=== PATIENT | male | born 1980 | race Caucasian/White ===

== ENCOUNTER 2017-07-02 17:10 | Emergency (ER) | payer BC, SELFPAY ==
[2017-07-02 17:16] VITALS: BP 149/83; PULSE 99; RESP 18; TEMP 36.7; O2SAT 94; BMI 37.5
--- NOTE | 2017-07-02 17:32 | XR_ITS ---
XR chest portable HISTORY: Shortness of breath ITS.REASON: DIAPHORETIC ORDERING PHYSICIAN: Philly Long MD PATIENT AGE: 37 years COMPARISON: 10/01/2016 FINDINGS: The cardiomediastinal silhouette and pulmonary vascularity are within normal limits. The lungs are clear without infiltrates, suspicious nodules, or pleural effusions. No acute bony abnormalities. IMPRESSION: Negative chest, no acute finding
[2017-07-02 17:43] LABS: POC Glucose,Bedside 281 mg/dL
[2017-07-02 18:06] LABS: Basophils # 0.2 K/mm3 (0-0.2); Basophils % 1.1 % (0.1-2.0); Eosinophils # 0.1 K/mm3 (0.0-0.4); Eosinophils % 0.6 % (0.1-12.0); Hemoglobin 16.5 g/dL (14.1-18.0); Lymphocytes # 3.2 K/mm3 (0.7-4.5); Lymphocytes % 24.1 K/mm3 (10-50); Mean Corpuscular HGB Conc 34.4 g/dL (31.8-35.4); Mean Corpuscular Volume 84.3 fl (80-94); Mean Platelet Volume 8.2 fl (7.4-10.4); Monocytes # 0.8 K/mm3 (0.1-1.0); Monocytes % 5.7 % (1.7-9.3); Neutrophils # 9.1 K/mm3 (1.8-7.8); Neutrophils % 68.5 % (37.0-80.0); Platelet Count 279 K/mm3 (142-424); Red Cell Distribution Width 12.3 % (11.5-17.5); White Blood Count 13.2 K/mm3 (4.8-10.8)
[2017-07-02 18:18] LABS: Alanine Aminotransferase 47 U/L (12-78); Albumin Level 4.1 gm/dL (3.4-5.0); Alkaline Phosphatase 105 U/L (46-116); Anion Gap 15.2 mEq/L (5-15); Aspartate Amino Transferase 27 U/L (15-37); Bilirubin,Total 0.4 mg/dL (0.2-1.0); Blood Urea Nitrogen 16 mg/dL (7-18); Calcium 9.6 mg/dL (8.5-10.1); Carbon Dioxide 26 mmol/L (21.0-32.0); Chloride 95 mmol/L (98-107); Creatinine Clearance Estimated 173 mL/min (0-300); Creatinine,Serum 1.03 mg/dL (0.70-1.30); Estimated Glomerular Filt Rate 81 ml/min (>60); GFR (African American) 98 ML/MIN (>60); Glucose 303 mg/dL (74-106); Potassium 4.2 mmoL/L (3.5-5.1); Sodium 132 mmol/L (136-145); Total Protein,Serum 8.1 gm/dL (6.4-8.2); Troponin I < 0.02 ng/ml (0.00-0.06)
[2017-07-02 18:42] VITALS: BP 156/90; PULSE 101; RESP 18; O2SAT 98
[2017-07-02 19:43] LABS: Microscopic, Urine URINE MICROSCOPIC (MICROSCOPIC)
[2017-07-02 19:45] LABS: Appearance,Urine CLEAR (Clear); Bilirubin,Urine Negative (Negative); Blood, Urine TRACE-I (Negative); Color,Urine YELLOW (Yellow); Glucose,Urine (UA) 3+ (Negative); Ketones,Urine TRACE (Negative); Leukocyte Esterase,Urine Negative (Negative); Nitrate,Urine Negative (Negative); Protein,Urine 1+ (Negative); Urobilinogen,Urine 0.2 EU/dl (0.2)
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
--- NOTE | 2017-07-02 21:02 | ED_ITS ---
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 extermination inspector insulin use status Qualified Code(s): E11.9 - Type 2 diabetes mellitus without complications Disposition: Home, Self-Care Condition on Discharge: Good Instructions: DI for Sinusitis Additional Instructions: call pcp about diabetes in am and use meds as directed Prescriptions: cephALEXin [Keflex 500mg Cap] 500 mg PO TID #30 cap Referrals: Laurence Erazo APRN [Primary Care Provider] - - Critical Care Critical Care Time: No Attestation: On 07/02/17, the high probability of a clinically significant, sudden or life threatening deterioration of the following system(s) required my full and direct attention, intervention and personal management. The time I documented below is in addition to time spent performing reported procedures but includes the following listed in this critical care notation. Medical Decision Making - Medical Records Medical records reviewed: Yes: I reviewed the patient's medical records. Vital Signs: 07/02/17 17:16 07/02/17 18:42 Temperature 98.1 F Temperature Source Oral Pulse Rate [Apical] 99 H 101 H Respiratory Rate 18 18 Blood Pressure [Right Arm] 149/83 156/90 Blood Pressure Mean [Right Arm] 105 112 Blood Pressure Source [Right Arm] Automatic Cuff Automatic Cuff Blood Pressure Position [Right Arm] Sitting Sitting 02 Sat by Pulse Oximetry 94 L 98 Oxygen Delivery Method Room Air Room Air - Lab Data Lab results reviewed: Yes: I reviewed the patient's lab results. Lab Results 07/02/17 17:18: POC Glucose 281 07/02/17 17:50: WBC 13.2 H, RBC 5.70, Hgb 16.5, Hct 48.0, MCV 84.3, MCH 29.0, MCHC 34.4, RDW 12.3, Plt Count 279, MPV 8.2, Neut % (Auto) 68.5, Lymph % (Auto) 24.1, [place] % (Auto) 5.7, Eos % (Auto) 0.6, Baso % (Auto) 1.1, Neut # (Auto) 9.1 H, Lymph # (Auto) 3.2, [place] # (Auto) 0.8, Eos # (Auto) 0.1, Baso # (Auto) 0.2 07/02/17 17:50: Sodium 132 L, Potassium 4.2, Chloride 95 L, Carbon Dioxide 26, Anion Gap 15.2 H, BUN 16, Creatinine 1.03, Estimated Creat Clear 173, Estimated GFR 81, Est GFR ( Amer) 98, Glucose 303 H, Calcium 9.6, Total Bilirubin 0.4, AST 27, ALT 47, Alkaline Phosphatase 105, Troponin I < 0.02, Total Protein 8.1, Albumin 4.1, Globulin 4.0 H, Albumin/Globulin Ratio 1.0 L 07/02/17 17:50: Acetone Level None detected 07/02/17 19:05: Urine Color Yellow, Urine Appearance Clear, Urine pH 6.0, Ur Specific [place] 1.020, Urine Protein 1+, Urine Glucose (UA) 3+, Urine Ketones Trace, Urine Blood Trace-i, Urine Nitrate Negative, Urine Bilirubin Negative, Urine Urobilinogen 0.2, Ur Leukocyte Esterase Negative, Urine RBC None, Urine WBC None, Ur Squamous Epith Cells None, Urine Bacteria Trace Result diagrams: 07/02/17 17:50 07/02/17 17:50 Orders (Tests/Meds): ORDERS Category Date Time Status XR chest portable Stat Exams 07/02/17 17:32 Taken - Radiology Data #1 Image Reviewed: Yes I reviewed the patient's radiology image Preliminary Findings: Normal/NAD - ECG Data Tracing #1 Ischemic changes: non-specific ST-T wave changes - Deuce Inquiry Pt receivi
[2017-07-02 21:12] LABS: Acetone, Serum (Rapid) None Detected (None Detect)
[2017-07-02 21:13] LABS: Bacteria,Urine Trace /lpf
== END 2017-07-02 21:50 | disposition home or self-care (01) ==
PROVIDERS: Emergency Provider Emergency Medicine; Family Provider Emergency Medicine; PCP Nurse Practitioner Family
DX: J01.90 Acute sinusitis, unspecified (principal); E11.649 Type 2 diabetes mellitus with hypoglycemia without coma; Z79.84 Long term (current) use of oral hypoglycemic drugs; R12 Heartburn; I10 Essential (primary) hypertension
CPT/HCPCS: 71045; 80053; 81001; 82009; 82962; 84484; 85025; 93005; 93041; 96366; 99283

== ENCOUNTER → 2017-07-02 17:53 | Outpatient (REF) | payer BC, SELFPAY | LOC: LAB 17:53 | PROVIDERS: Visit Provider Nurse Practitioner Family | DX: E11.9 Type 2 diabetes mellitus without complications; J01.90 Acute sinusitis, unspecified ==

== ENCOUNTER 2017-08-12 08:00 | Outpatient (RCR) | payer BC, SELFPAY | END 2017-08-12 08:01 | disposition home or self-care (01) | LOC: OT 08:00 | PROVIDERS: Family Provider Emergency Medicine; PCP Nurse Practitioner Family; Visit Provider Orthopaedic Surgery Adult Reconstructive Orthopaedic Surgery | DX: M25.511 Pain in right shoulder (principal) | CPT/HCPCS: 97014; 97110; 97166; G0283 ==

== ENCOUNTER → 2017-12-25 10:25 | Outpatient (CLI) | payer BC, SELFPAY ==
[2017-12-25 10:54] LABS: Basophils # 0.1 K/mm3 (0-0.2); Eosinophils # 0.2 K/mm3 (0.0-0.4); Hematocrit 46.9 % (42.0-52.0); Hemoglobin 15.4 g/dL (14.1-18.0); Lymphocytes # 3.6 K/mm3 (0.7-4.5); Lymphocytes % 39.5 K/mm3 (10-50); Mean Corpuscular Hemoglobin 27.9 pg (27.0-31.2); Mean Corpuscular Volume 84.6 fl (80-94); Mean Platelet Volume 8.1 fl (7.4-10.4); Monocytes # 0.6 K/mm3 (0.1-1.0); Neutrophils # 4.7 K/mm3 (1.8-7.8); Neutrophils % 51.6 % (37.0-80.0); Platelet Count 257 K/mm3 (142-424); Red Blood Count 5.54 M/mm3 (4.60-6.20); Red Cell Distribution Width 12.5 % (11.5-17.5); White Blood Count 9.1 K/mm3 (4.8-10.8)
[2017-12-25 11:43] LABS: Hemoglobin A1C 10.4 % (0.0-7.0)
[2017-12-25 12:02] LABS: Alanine Aminotransferase 50 U/L (12-78); Albumin Level 3.9 gm/dL (3.4-5.0); Albumin/Globulin Ratio 1.1 (1.1-1.8); Alkaline Phosphatase 88 U/L (46-116); Aspartate Amino Transferase 28 U/L (15-37); Bilirubin,Total 0.4 mg/dL (0.2-1.0); Blood Urea Nitrogen 13 mg/dL (7-18); Calcium 8.5 mg/dL (8.5-10.1); Carbon Dioxide 28 mmol/L (21.0-32.0); Chloride 98 mmol/L (98-107); Chol/HDL Ratio 6.5 (1-3.5); Cholesterol 201 mg/dL (140-200); Creatinine,Serum 0.82 mg/dL (0.70-1.30); Estimated Glomerular Filt Rate 105 ml/min (>60); GFR (African American) 127 ML/MIN (>60); Globulin 3.4 gm/dl (1.3-3.2); Glucose 266 mg/dL (74-106); HDL Cholesterol 31 mg/dL (27-67); LDL Cholesterol 100 mg/dL (0-130); Sodium 135 mmol/L (136-145); T4 (Thyroxine) 8.4 ug/dl (4.7-13.3); Thyroid Stimulating Hormone 1.67 uIU/ml (0.358-3.740); Total Protein,Serum 7.3 gm/dL (6.4-8.2); Triglycerides 350 mg/dL (30-200); VLDL Cholesterol 70 mg/dL (0-40)
[2017-12-26 11:43] LABS: Vitamin D 25 Hydroxy 23.2 ng/mL (30.0-100.0)
== END ==
PROVIDERS: Visit Provider Nurse Practitioner Family
DX: E11.9 Type 2 diabetes mellitus without complications (principal); Z71.3 Dietary counseling and surveillance; Z79.899 Other long term (current) drug therapy
CPT/HCPCS: 36415; 80053; 80061; 82043; 82652; 83036; 84436; 84443; 85025

== ENCOUNTER 2017-12-25 11:00 | Outpatient (RCR) | payer BC, SELFPAY | END 2017-12-25 11:01 | disposition home or self-care (01) | LOC: OT 11:00 | PROVIDERS: Family Provider Emergency Medicine; PCP Nurse Practitioner Family; Visit Provider Orthopaedic Surgery Adult Reconstructive Orthopaedic Surgery | DX: M75.21 Bicipital tendinitis, right shoulder (principal) | CPT/HCPCS: 97014; 97140; 97165; G0283 ==

== ENCOUNTER → 2017-12-26 17:40 | Outpatient (REF) | payer BC, SELFPAY ==
[2017-12-26 17:57] LABS: Amphetamine/Metha Screen,Urine Negative ng/mL (<1000); Barbiturates Screen,Urine Negative ng/mL (<200); Benzodiazepines Screen,Urine Negative ng/mL (<200); Cannabinoid Screen,Urine Negative ng/mL (<50); Cocaine Screen,Urine Negative ng/mL (<300); Methadone Screen,Urine Negative ng/mL (<300); Opiate Screen,Urine Negative ng/mL (<300); Phencyclidine Screen,Urine Negative ng/mL (<25)
== END ==
LOC: LAB 17:40
PROVIDERS: Visit Provider Nurse Practitioner Family
DX: Z79.899 Other long term (current) drug therapy (principal)
CPT/HCPCS: 80305

== ENCOUNTER → 2018-08-20 08:00 | Outpatient (POV) | payer BC, SELFPAY | PROVIDERS: Visit Provider Dentist | DX: Z00.00 Encounter for general adult medical examination without abnormal findings (principal) ==

== ENCOUNTER → 2018-10-16 08:24 | Outpatient (CLI) | payer BC, SELFPAY ==
[2018-10-16 08:45] LABS: Basophils # 0.1 K/mm3 (0-0.2); Basophils % 0.9 % (0.1-2.0); Eosinophils # 0.2 K/mm3 (0.0-0.4); Eosinophils % 2.6 % (0.1-12.0); Hematocrit 43.2 % (42.0-52.0); Hemoglobin 15.3 g/dL (14.1-18.0); Lymphocytes # 3.4 K/mm3 (0.7-4.5); Lymphocytes % 37.3 % (10-50); Mean Corpuscular HGB Conc 35.5 g/dL (31.8-35.4); Mean Corpuscular Hemoglobin 29.4 pg (27.0-31.2); Mean Corpuscular Volume 82.8 fl (80-94); Mean Platelet Volume 7.8 fl (7.4-10.4); Monocytes # 0.5 K/mm3 (0.1-1.0); Monocytes % 5.2 % (1.7-9.3); Neutrophils # 4.9 K/mm3 (1.8-7.8); Neutrophils % 53.9 % (37.0-80.0); Platelet Count 218 K/mm3 (142-424); Red Blood Count 5.22 M/mm3 (4.60-6.20); Red Cell Distribution Width 12.6 % (11.5-17.5)
[2018-10-16 09:26] LABS: Alanine Aminotransferase 64 U/L (12-78); Albumin Level 3.6 gm/dL (3.4-5.0); Albumin/Globulin Ratio 1.1 (1.1-1.8); Alkaline Phosphatase 86 U/L (46-116); Anion Gap 13.2 mEq/L (5-15); Aspartate Amino Transferase 32 U/L (15-37); Bilirubin,Total 0.3 mg/dL (0.2-1.0); Blood Urea Nitrogen 9 mg/dL (7-18); Calcium 8.5 mg/dL (8.5-10.1); Carbon Dioxide 29 mmol/L (21.0-32.0); Chloride 100 mmol/L (98-107); Chol/HDL Ratio 6.7 (1-3.5); Cholesterol 201 mg/dL (140-200); Creatinine,Serum 0.87 mg/dL (0.70-1.30); Estimated Glomerular Filt Rate 98 ml/min (>60); GFR (African American) 118 ML/MIN (>60); Globulin 3.4 gm/dl (1.3-3.2); Glucose 218 mg/dL (74-106); HDL Cholesterol 30 mg/dL (27-67); LDL Cholesterol 95 mg/dL (0-130); Potassium 4.2 mmoL/L (3.5-5.1); Sodium 138 mmol/L (136-145); T4 (Thyroxine) 7.6 ug/dl (4.7-13.3); Thyroid Stimulating Hormone 1.29 uIU/ml (0.358-3.740); Triglycerides 381 mg/dL (30-200); VLDL Cholesterol 76 mg/dL (0-40)
[2018-10-16 10:14] LABS: Hemoglobin A1C 9.9 % (0.0-7.0)
[2018-10-17 06:44] LABS: Vitamin D 25 Hydroxy 17.5 ng/mL (30.0-100.0)
[2018-10-17 12:41] LABS: Microalbumin, Urine 127.3 ug/mL (Not Estab.)
== END ==
PROVIDERS: Visit Provider Nurse Practitioner Family
DX: E11.40 Type 2 diabetes mellitus with diabetic neuropathy, unspecified (principal); R53.83 Other fatigue; E11.8 Type 2 diabetes mellitus with unspecified complications; E66.9 Obesity, unspecified; Z79.84 Long term (current) use of oral hypoglycemic drugs
CPT/HCPCS: 36415; 80053; 80061; 82043; 82652; 83036; 84436; 84443; 85025

== ENCOUNTER → 2020-02-24 10:27 | Outpatient (CLI) | payer BC, SELFPAY ==
--- NOTE | 2020-02-24 10:32 | US_ITS ---
PROCEDURE: US ABDOMEN LIMITED CLINICAL INDICATION: RUQ ABD PAIN, NAUSEA COMPARISON: No exams were available for comparison FINDINGS: PANCREAS: Pancreas is not well delineated due to overlying bowel gas. CT or MRI without and with contrast with pancreatic protocol may provide further evaluation if clinically desired. LIVER: Diffuse increased echogenicity of the liver with poor through transmission of sound consistent with hepatic steatosis. No focal liver lesion demonstrated. There is appropriate direction of blood flow within non dilated portal vein. RIGHT KIDNEY: Unremarkable. Normal size and echogenicity. No hydronephrosis GALLBLADDER: No gallstones, gallbladder wall thickening, pericholecystic fluid, or biliary dilatation. IMPRESSION: Fatty liver otherwise negative right upper quadrant ultrasound Dictated by: Manny Herbert MD 02/24/2020 11:42 Manny Herbert MD in [facility] 02/24/2020 11:42
== END ==
PROVIDERS: PCP Family Medicine; Visit Provider Family Medicine
DX: R10.11 Right upper quadrant pain (principal); R11.0 Nausea
CPT/HCPCS: 76705

== ENCOUNTER → 2020-03-07 09:19 | Outpatient (CLI) | payer BC, SELFPAY ==
--- NOTE | 2020-03-07 09:28 | NM_ITS ---
PROCEDURE: NM HEPATOBILIARY W PHARM CLINICAL INDICATION: RUQ ABD PAIN, NAUSEA COMPARISON: No exams were available for comparison TECHNIQUE: 8.52 mCi technetium Choletec DOSE: 2.4 mcg of CCK FINDINGS: Homogeneous activity is present within the hepatic parenchyma. Activity is present in the gallbladder by 5 minutes. Activity is present in the small bowel by 50 minutes. The gallbladder ejection fraction is calculated to be 94 percent. Minimal pain reported with CCK infusion IMPRESSION: No evidence of common or cystic duct obstruction with normal gallbladder ejection fraction Dictated by: Manny Herbert MD 03/07/2020 19:38 Manny Herbert MD in [place] 03/07/2020 19:38
--- NOTE | 2020-03-07 10:11 | HMH.ITSHM ---
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 []METFORMIN LISINOPRIL CHOLESTEROL MED LEYDI DUEÑAS
== END ==
PROVIDERS: PCP Family Medicine; Visit Provider Family Medicine
DX: R10.11 Right upper quadrant pain (principal); R11.0 Nausea
CPT/HCPCS: 78227; A9537; J2805

== ENCOUNTER → 2020-03-09 10:06 | Outpatient (CLI) | payer BC, SELFPAY ==
--- NOTE | 2020-03-09 10:09 | XR_ITS ---
PROCEDURE: XR KUB CLINICAL INDICATION: R FLANK PAIN COMPARISON: CT ABDPELW/O CT ABD PELVIS W/O CONTRAST from 07/21/2015 FINDINGS: Gas pattern-The bowel gas pattern is unremarkable. No obvious obstruction. Calcifications-No abnormal calcifications are evident. No obvious renal or ureteral calculi. Bones-No acute bony anomalies evident. There are multiple small metallic coils in the pelvis and right lower quadrant IMPRESSION: No acute findings. Dictated by: Manny Herbert MD 03/09/2020 11:19 Manny Herbert MD in [place] 03/09/2020 11:19
== END ==
PROVIDERS: PCP Family Medicine; Visit Provider Family Medicine
DX: R10.9 Unspecified abdominal pain (principal)
CPT/HCPCS: 74018

== ENCOUNTER → 2020-04-05 09:50 | Outpatient (CLI) | payer BC, SELFPAY ==
--- NOTE | 2020-04-05 10:00 | CT_ITS ---
PROCEDURE: CT ABDOMEN PELVIS WO/W CON CLINICAL INDICATION: LOWER ABD PAIN, FEVER AND CHILLS, LEUKEMOID REACTION RUQ, RIGHT SIDE ABD PAIN, MID LOW BACK PAIN COMPARISON: CT ABDPELW/O CT ABD PELVIS W/O CONTRAST from 07/21/2015 TECHNIQUE: IV Contrast: 75ML OPTIRAY 350 Oral Contrast 450ml Redicat Axial images obtained with sagittal and coronal reformats. All CT scans at the facility use one or more dose reduction, viz: automated exposure control, ma/kV adjustment per patient size (including targeted exams where dose is matched to indication, i.e. head), or iterative reconstruction technique. FINDINGS: LOWER THORAX: No acute finding ABDOMEN & PELVIS: Fatty liver. No focal liver lesion identified the spleen, adrenal glands, pancreas, and gallbladder have an unremarkable appearance. Unenhanced images demonstrate a nonobstructing 3 mm stone in the upper pole of the right kidney. The kidneys have an otherwise unremarkable appearance. Postsurgical changes are present involving the anterior abdominal wall. There is some curvilinear increased density in the right lower pelvic region anteriorly probably related to some scarring having a similar appearance on 07/21/2015. No evidence of appendicitis or diverticulitis. No intestinal obstruction or free air. There is a small umbilical hernia which contains fat. No acute bony findings. 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 There is mild sclerosis of the left SI joint IMPRESSION: 1. No acute abdominal or pelvic findings. 2. Nonobstructing right nephrolithiasis. 3. Nonacute findings as detailed above. Dictated by: Manny Herbert MD 04/06/2020 09:30 Manny Herbert MD in [place] 04/06/2020 09:30
[2020-04-05 10:21] LABS: Blood Urea Nitrogen 11 mg/dl (9-20); Estimated Glomerular Filt Rate 124 ml/min (>60); GFR (African American) 150 ML/MIN (>60)
== END ==
PROVIDERS: PCP Family Medicine; Visit Provider Family Medicine
DX: R10.30 Lower abdominal pain, unspecified (principal); R50.9 Fever, unspecified; D72.823 Leukemoid reaction
CPT/HCPCS: 36415; 74178; 82565; 84520; Q9967

== ENCOUNTER → 2020-08-14 14:49 | Outpatient (CLI) | payer BC, SELFPAY ==
--- NOTE | 2020-08-14 14:54 | XR_ITS ---
PROCEDURE: XR WRIST RT MIN 3V CLINICAL INDICATION: ACUTE PAIN OF RT WRIST COMPARISON: No exams were available for comparison FINDINGS: No fracture or dislocation. No lytic or blastic change. There is normal mineralization. The joint spaces are well-preserved. No significant degenerative/arthritic changes. No erosive changes evident. Other findings:None. IMPRESSION: No acute findings. Dictated by: Manny Herbert MD 08/14/2020 15:49 Manny Herbert MD in [place] 08/14/2020 15:49
== END ==
PROVIDERS: PCP Family Medicine; Visit Provider Family Medicine
DX: M25.531 Pain in right wrist (principal)
CPT/HCPCS: 73110

== ENCOUNTER → 2021-01-24 13:02 | Outpatient (CLI) | payer BC, SELFPAY ==
--- NOTE | 2021-01-24 13:05 | MR_ITS ---
PROCEDURE: MR KNEE RT WO CON CLINICAL INDICATION: INTERNAL DERANGEMENT OF RIGHT KNEE Right medial knee pain COMPARISON: No exams were available for comparison TECHNIQUE: Routine multiplanar multi echo sequences are performed without gadolinium enhancement. FINDINGS: The cruciate ligaments appear intact. The collateral ligaments appear intact. Horizontal tear is present involving the posterior horn of the medial meniscus. Additional horizontal tear involves the body of the medial meniscus with extension to both the free edge of the meniscus medially and the tibial surface of the meniscus. The patellar tendon and quadriceps tendon have an unremarkable appearance. The patellar cartilage is preserved. Small amount fluid noted in the suprapatellar bursa. There is slight decrease in the knee joint space medially and there are small osteophytes at the proximal tibia. Subcortical cystic changes involve the posterior and proximal aspect of the tibia medially. This area measures approximately 1 cm IMPRESSION: 1. Nondisplaced horizontal tear involves the posterior horn and body of the medial meniscus. 2. Minimal osteoarthritic changes Dictated by: Manny Herbert MD 01/24/2021 16:44 Manny Herbert MD in [place] 01/24/2021 16:44
== END ==
PROVIDERS: PCP Family Medicine; Visit Provider Family Medicine
DX: M23.91 Unspecified internal derangement of right knee (principal)
CPT/HCPCS: 73721

== ENCOUNTER → 2021-02-23 13:14 | Outpatient (CLI) | payer BC, SELFPAY ==
--- NOTE | 2021-02-23 13:16 | XR_ITS ---
PROCEDURE: XR KNEE RT 4V CLINICAL INDICATION: RT knee pain COMPARISON: No exams were available for comparison FINDINGS: No fracture or dislocation. No lytic or blastic change. There is normal mineralization. The joint spaces are well-preserved. No significant degenerative/arthritic changes. No erosive changes evident. Other findings:None. IMPRESSION: No acute findings. Dictated by: Dr. Beto Suarez MD 02/23/2021 13:34 Dr. Beto Suarez MD in [place] 02/23/2021 13:34
== END ==
PROVIDERS: PCP Family Medicine; Visit Provider Orthopaedic Surgery
DX: M25.561 Pain in right knee (principal)
CPT/HCPCS: 73564

== ENCOUNTER → 2021-06-18 12:07 | Outpatient (CLI) | payer BC, SELFPAY | PROVIDERS: PCP Family Medicine; Visit Provider Nurse Practitioner | DX: U07.1 COVID-19 (principal) | CPT/HCPCS: C9803; U0003; U0005 ==

== ENCOUNTER 2021-06-21 08:18 | Outpatient (CLI) | payer BC, SELFPAY ==
[2021-06-21] VITALS (9 sets, daily range): BP systolic 130–166; BP diastolic 92–113; PULSE 87–98; RESP 18; TEMP 36.8; O2SAT 95–98
== END 2021-06-21 12:45 | disposition home or self-care (01) ==
LOC: COVID.OUT 08:19
PROVIDERS: PCP Family Medicine; Visit Provider Family Medicine
DX: U07.1 COVID-19 (principal); Z23 Encounter for immunization
CPT/HCPCS: 96365

== ENCOUNTER → 2021-09-24 15:18 | Outpatient (CLI) | payer BC, SELFPAY ==
[2021-09-24 16:52] LABS: Alanine Aminotransferase 47 U/L (12-78); Albumin Level 4.1 g/dl (3.5-5.0); Albumin/Globulin Ratio 1.6 (1.1-1.8); Alkaline Phosphatase 77 U/L (38-126); Anion Gap 10.3 mEq/L (5-15); Aspartate Amino Transferase 36 U/L (17-59); Bilirubin,Total 0.4 mg/dl (0.2-1.3); Blood Urea Nitrogen 17 mg/dl (9-20); Calcium 9.2 mg/dl (8.4-10.2); Carbon Dioxide 27 mmol/L (22.0-30.0); Chloride 104 mmol/L (98-107); Estimated Glomerular Filt Rate 106 ml/min (>60); GFR (African American) 128 ML/MIN (>60); Globulin 2.6 g/dL (1.3-3.2); Glucose 138 mg/dl (74-100); Magnesium 1.9 mg/dl (1.6-2.3); Potassium 4.3 mmoL/L (3.5-5.1); Sodium 137 mmol/L (136-145); Total Protein,Serum 6.7 g/dl (6.3-8.2)
[2021-09-24 16:57] LABS: C-Reactive Protein 3.2 mg/L (0-4)
[2021-09-24 17:21] LABS: Thyroid Stimulating Hormone 0.76 uIU/mL (0.465-4.68)
[2021-09-24 17:55] LABS: Vitamin B12 512 pg/mL (239-931)
== END ==
PROVIDERS: PCP Nurse Practitioner Family; Visit Provider Nurse Practitioner Family
DX: E11.42 Type 2 diabetes mellitus with diabetic polyneuropathy (principal); R20.0 Anesthesia of skin; R20.2 Paresthesia of skin; Z79.84 Long term (current) use of oral hypoglycemic drugs
CPT/HCPCS: 36415; 80053; 82607; 83735; 84443; 86140

== ENCOUNTER 2021-11-21 14:55 | Emergency (ER) | payer BC, SELFPAY ==
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
[2021-11-21 16:46] VITALS: BP 176/93; PULSE 92; RESP 16; TEMP 36.8; O2SAT 99; BMI 36.2
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
[2021-11-21 17:11] VITALS: BP 170/87; PULSE 84; RESP 16; TEMP 36.8; O2SAT 98
== END 2021-11-21 17:12 | disposition home or self-care (01) ==
PROVIDERS: Emergency Provider Nurse Practitioner; PCP Family Medicine
DX: S99.911A Unspecified injury of right ankle, initial encounter (principal); V09.9XXA Pedestrian injured in unspecified transport accident, initial encounter; Y92.481 Parking lot as the place of occurrence of the external cause
CPT/HCPCS: 73610; 73630; 99212; G0463

== ENCOUNTER → 2021-12-04 12:04 | Outpatient (CLI) | payer BC, SELFPAY ==
--- NOTE | 2021-12-04 12:19 | XR_ITS ---
FINAL REPORT CLINICAL HISTORY: Pain, crush injury, followup COMPARISON: November 21, 2021 FINDINGS: RIGHT FOOT: Three weight bearing views of the right foot were obtained. There is no acute fracture or dislocation. There are mild degenerative changes at the 1st MTP joint. Hallux valgus deformity is noted. There are subchondral cysts or chronic erosions of the medial head of the 1st metatarsal. IMPRESSION: No acute bony abnormality. Mild degenerative change of the 1st MTP joint with subchondral cysts or chronic erosions of the medial head of the 1st metatarsal. Reviewed, Interpreted and Dictated by Rudy Roberts III, MD Transcribed by Johnny Arteaga Authenticated and [facility]
== END ==
PROVIDERS: PCP Family Medicine; Visit Provider Podiatrist
DX: M79.671 Pain in right foot (principal)
CPT/HCPCS: 73630

== ENCOUNTER → 2022-02-13 09:21 | Outpatient (CLI) | payer BC, SELFPAY ==
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
== END ==
PROVIDERS: PCP Family Medicine; Visit Provider Podiatrist
DX: M79.671 Pain in right foot (principal); R60.0 Localized edema; S93.621A Sprain of tarsometatarsal ligament of right foot, initial encounter; S99.921A Unspecified injury of right foot, initial encounter
CPT/HCPCS: 73718

== ENCOUNTER 2022-06-25 16:00 | Outpatient (RCR) | payer OTHER, BC, SELFPAY | END 2022-06-25 16:05 | disposition home or self-care (01) | LOC: PT 16:00 | PROVIDERS: PCP Family Medicine; Visit Provider Family Medicine | DX: M54.16 Radiculopathy, lumbar region (principal) | CPT/HCPCS: 97163 ==

== ENCOUNTER → 2022-09-10 15:44 | Outpatient (CLI) | payer OTHER, BC, SELFPAY ==
--- NOTE | 2022-09-10 | US_ITS ---
FINAL REPORT CLINICAL HISTORY: HTN, hyperlipidemia, DM, bilateral rest pain, bilateral claudication FINDINGS: COMPLETE ANKLE/BRACHIAL INDICES BILATERAL Complete ankle brachial indices were obtained. The right ELEANOR is 1.4. The left ELEANOR is 1.2. IMPRESSION: ABIs are within normal limits bilaterally. Reviewed, Interpreted and Dictated by Michi Samson MD Transcribed by Marya Stone Authenticated and [facility]
== END ==
PROVIDERS: PCP Family Medicine; Visit Provider Family Medicine
DX: I70.213 Atherosclerosis of native arteries of extremities with intermittent claudication, bilateral legs (principal); E11.65 Type 2 diabetes mellitus with hyperglycemia; Z79.4 Long term (current) use of insulin
CPT/HCPCS: 93923

== ENCOUNTER → 2022-10-10 13:30 | Outpatient (POV) | payer OTHER, BC, SELFPAY ==
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
[2022-10-10 14:45] VITALS: BP 132/89; PULSE 94; RESP 18; O2SAT 98; BMI 36.6
== END ==
PROVIDERS: PCP Family Medicine; Visit Provider Nurse Practitioner Family
DX: G90.529 Complex regional pain syndrome I of unspecified lower limb (principal); M79.671 Pain in right foot; E11.40 Type 2 diabetes mellitus with diabetic neuropathy, unspecified
CPT/HCPCS: 99202; G0463

== ENCOUNTER 2022-10-15 10:45 | Day surgery (SDC) | payer OTHER, BC, SELFPAY ==
[2022-10-15 10:50] VITALS: BP 128/89; PULSE 82; RESP 18; TEMP 36.2; O2SAT 99; BMI 36.6
[2022-10-15 11:04] VITALS: BP 165/95; PULSE 76; RESP 18; O2SAT 97
[2022-10-15 11:05] VITALS: BP 165/95; PULSE 76; RESP 18; O2SAT 97
[2022-10-15 11:13] VITALS: BP 151/96; PULSE 74; RESP 18; O2SAT 99
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
== END 2022-10-15 11:13 | disposition home or self-care (01) ==
LOC: SC.PAINP 10:47
PROVIDERS: PCP Family Medicine; Visit Provider Nurse Anesthetist, Certified Registered
DX: G90.521 Complex regional pain syndrome I of right lower limb (principal); M79.671 Pain in right foot
CPT/HCPCS: 64520; 77003; J1040; Q9966

== ENCOUNTER 2023-12-07 19:02 | Emergency (ER) | payer BC, SELFPAY ==
[2023-12-07 19:04] VITALS: BP 148/106; PULSE 104; RESP 17; TEMP 36.9; O2SAT 95; BMI 35.9
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
[2023-12-07 19:56] VITALS: BP 146/98; PULSE 94; RESP 18; TEMP 36.7; O2SAT 96
== END 2023-12-07 19:57 | disposition home or self-care (01) ==
PROVIDERS: Emergency Provider Student in an Organized Health Care Education/Training Program; PCP Family Medicine
DX: S80.11XA Contusion of right lower leg, initial encounter (principal); M79.661 Pain in right lower leg; W22.8XXA Striking against or struck by other objects, initial encounter
CPT/HCPCS: 73590; 73630; 99283

== ENCOUNTER 2024-05-23 08:10 | Emergency (ER) | payer BC, SELFPAY ==
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
[2024-05-23 08:28] VITALS: BP 155/100; PULSE 70; RESP 20; TEMP 36.8; O2SAT 97; BMI 36.6
--- NOTE | 2024-05-23 08:38 | ED_ITS ---
Discharge Plan Disposition Patient Disposition: Home, Self-Care Condition: Good Prescriptions Prescriptions: New cyclobenzaprine 10 mg Tablet 10 mg PO BID PRN (Reason: Muscle Spasm) Qty: 20 0RF ibuprofen [IBU] 800 mg tablet 800 mg PO Q8HP PRN (Reason: Moderate Pain) Qty: 30 0RF No Action atorvastatin 10 mg tablet 10 mg PO DAILY metformin 850 mg tablet 850 mg PO DAILY gabapentin 300 mg capsule 600 mg PO TID Novolin 70-30 FlexPen U-100 100 unit/mL (70-30) insulin pen See Rx Instructions .ROUTE .COMPLEX Rx Instructions: SEE INSTRUCTIONS lisinopril 20 mg tablet 20 mg PO DAILY Rybelsus 7 mg tablet 7 mg PO DAILY bisoprolol fumarate 10 MG tablet 10 mg PO DAILY Referrals Follow up/Referrals: Roberto Noyola MD [Primary Care Provider] - See instructions Activity Restrictions/Add. Instructions Additional Instructions/Restrictions: Go home and rest. It would be best if you rested tomorrow too. No heavy lifting & No twisting for the next few days. The muscle relaxer (cyclobenzaprine--Flexeril) will make you drowsy, so don't drive or operate heavy machinery after taking it. Follow up with your regular doctor. GO TO THE ER FOR ANY WORSENING SYMPTOMS OR CONCERN, ESPECIALLY BOWEL OR BLADD ER ISSUES, SADDLE AREA NUMBNESS, FEVER, ETC Clinical Impressions Clinical Impression: Low back pain, Coccyx pain, Fall Stand Alone Forms Stand Alone Forms: Work/School Release Print Language Print Language: Argentine Discharge ED Provider: Jude Haddad [facility] General Stated complaint: AO-05/19 Pain in R lower back Mode of Arrival: Ambulatory Source of Information: Patient Time Seen by Provider: 05/23/24 08:33 Description of Symptoms (Recalled from Triage Doc. by RN): RIGHT LOWER BACK PAIN/ COCCYX PAIN FROM FALL, UNABLE TO SIT DOWN HEENT Symptoms (Recalled from RN notes): No Resp Symptoms (Recalled from RN notes): No Skin Symptoms (Recalled from RN notes): No MS Symptoms (Recalled from RN notes): Yes Functional Status (Recalled from RN notes): UNABLE TO SIT, IN PAIN History of Present Illness Provider Complaint: He states that he fell backwards and came down on his bottom 4 days ago. Since then he has had low back pain and coccyx pain. He denies any other injury or complaints. He denies any bowel or bladder issues. Related Data Home Medications ?Medication ?Instructions ?Recorded ?Confirmed bisoprolol fumarate 10 mg tablet 10 mg PO DAILY htn 07/26/19 05/23/24 insulin NPH-regular 70-30 U-100 See Rx Instructions .Route 12/04/21 10/15/22 insulin 100 unit/mL subcutaneous .COMPLEX Diabetes pen (Novolin 70-30 FlexPen U-100 Insulin) atorvastatin 10 mg tablet 10 mg PO DAILY Cholesterol 01/01/22 05/23/24 metformin 850 mg tablet 850 mg PO DAILY Diabetes 01/01/22 05/23/24 gabapentin 300 mg capsule 600 mg PO TID Pain 09/03/22 05/23/24 lisinopril 20 mg tablet 20 mg PO DAILY BLOOD PRESSURE 09/03/22 05/23/24 semaglutide 7 mg tablet (Rybelsus) 7 mg PO DAILY Diabetes 09/03/22 10/15/22 Previous Rx's ?Medication ?Instructions ?Recorded cyclobenzaprine 10 mg tablet 10 mg PO BID PRN Muscle Spasm #20 05/23/24 tabs ibuprofen 800 mg tablet (IBU) 800 mg PO Q8HP PRN Moderate Pain 05/23/24 #30 tabs Allergies Allergy/AdvReac Type Severity Reaction Status Date / Time CHICKEN MEAT Allergy Unknown Uncoded 09/03/22 09:13 SHRIMP Allergy Unknown Uncoded 09/03/22 09:13 Worker's Comp Is this a Worker's Comp case?: No [facility] Disclaimer: The information contained in this section may have been updated after the patient was seen, as this information can be updated by other users. Medical History Angina, class I Foot pain, right HTN (hypertension) Social History Smoking Status: Never smoker alcohol intake: current alcohol intake frequency: holidays/special occasions only substance use type: denies use current occupational status: employed household members: family housing: house caffeine: Yes ROS Obtained: Yes All systems reviewed & no additional complaints except as documented Constitutional Constitutional: Denies chills and Denies fever(s) Eyes Eyes: Denies eye discharge ENT Ears, Nose, Mouth, and Throat: Denies dizziness, Denies otalgia, Denies neck pain and Denies sore throat Cardiovascular Cardiovascular: Denies chest pain Respiratory Respiratory: Denies shortness of breath, Denies chest congestion, Denies cough, Denies stridor and Denies wheezing Gastrointestinal Gastrointestingal: Denies nausea or vomiting Musculoskeletal Musculoskeletal: Reports as per HPI, Reports back pain and Denies neck pain Integumentary/Breasts Skin/Breast: Denies redness, Denies rash and Denies wounds Neurologic Neurologic: Denies dizziness and Denies paresthesias Allergic/Immunologic Allergic/Immunologic: Denies wheezing Physical Exam General General appearance: alert and in no apparent distress Head Head exam: atraumatic, normocephalic and normal inspection Eye Eye exam: Present normal appearance, PERRL and EOMI ENT ENT exam: Present normal exam, normal oropharynx, mucous membranes moist, TM's normal bilaterally and normal external ear exam Neck Neck exam: Present normal inspection, full ROM and trachea midline; Absent meningismus or lymphadenopathy Chest Chest inspection: Present normal inspection and symmetric chest wall rise; Absent tenderness Respiratory Respiratory exam: Present normal lung sounds bilaterally; Absent respiratory distress Cardiovascular Cardiovascular exam: Present regular rate and normal rhythm; Absent JVD Abdominal Exam Abdominal exam: Present soft and normal bowel sounds; Absent distention, tenderness or guarding Extremities Exam Extremities exam: Present normal capillary refill; Absent calf tenderness Expanded Lower Extremity Exam Right: Hip/Pelvis exam: Present normal inspection and full ROM; Absent tenderness Upper leg exam: Present normal inspection and full ROM; Absent tenderness Knee exam: Present normal inspection, full ROM and knee extension intact; Absent tenderness Lower leg exam: Present normal inspection and full ROM; Absent tenderness Ankle exam: Present normal inspection and full ROM; Absent tenderness Foot/toe exam: Present normal inspection and full ROM; Absent tenderness Neurovascular/Tendon exam: Present normal capillary refill, normal 2-point discrimination and normal fine/light touch; Absent pulse deficit, motor deficit, sensory deficit, tendon deficit, extremity cold to touch or pallor Gait: observed and normal Left: Hip/Pelvis exam: Present normal inspection and full ROM; Absent tenderness Upper leg exam: Present normal inspection and full ROM; Absent tenderness Knee exam: Present normal inspection and full ROM; Absent tenderness Lower leg exam: Present normal inspection and full ROM; Absent tenderness Ankle exam: Present normal inspection and full ROM; Absent tenderness Foot/toe exam: Present normal inspection and full ROM; Absent tenderness Neurovascular/Tendon exam: Present normal capillary refill, normal 2-point discrimination and normal fine/light touch; Absent pulse deficit, motor deficit, sensory deficit, tendon deficit, extremity cold to touch or pallor Gait: observed and normal Back Exam Back exam: Present full ROM, tenderness and sciatic notch tenderness (L); Absent CVA tenderness (R), CVA tenderness (L), muscle spasm, paraspinal tenderness, vertebral tenderness, rashes, sciatic notch tenderness (R), straight leg raise ( R) or straight leg raise (L) Neurological Exam Neurological exam: Present alert, oriented X3, CN II-XII intact, normal gait and reflexes normal; Absent motor sensory deficit Expanded Neurological Exam Patient oriented to: Present person, place and time Speech: Present fluid speech Cranial nerves: Normal: EOM function (II, III, IV, ), facial sensation (V), facial palsy (VII), gag reflex (IX), spinal accessory function (XI) and tongue deviation (XII) Cerebellar function: normal gait Motor strength - LUE: 5/5 Motor strength - RUE: 5/5 Motor strength - LLE: 5/5 Motor strength - RLE: 5/5 Upper motor neuron exam: Normal: cathy neglect and sensory extinction Sensory exam upper extremity: Normal: light touch and 2 point discrimination Sensory exam lower extremity: Normal: light touch and 2 point discrimination DTR: 2+: biceps (L), biceps (R), patellar (L), patellar (R), Achilles tendon (L) and Achilles tendon (R) Spinal cord function: Absent saddle anesthesia Psychiatric Psychiatric exam: Present normal affect and normal mood Skin Skin exam: Present warm, dry, intact and normal color Lymphatic Lymphatic Findings: no adenopathy Medical Decision Making Medical Records Medical records reviewed: No I reviewed the patient's medical records. Screening: Per USPSTF and CDC recommendations, given the prevalence of disease in our region, it is our hospital?s policy to screen for HIV and viral Hepatitis for all patients aged 18 and over and those with ongoing risk factors. Deuce Inquiry Pt receiving controlled substance: No Vital Signs: 05/23/24 08:28 Temperature 98.2 F Temperature Source Oral Pulse Rate [Left Radial] 70 Respiratory Rate 20 Blood Pressure [Left Arm] 155/100 H Blood Pressure Mean [Left Arm] 118 02 Sat by Pulse Oximetry 97 Orders (Tests/Meds): ORDERS Category Date Time Status Coccyx XR 2 view [XR coccyx 2V] Stat Exams 05/23/24 08:22 Ordered XR lumbar spine 2-3V Stat Exams 05/23/24 08:22 Ordered Radiology Data #1: Image(s): L-Spine Image Reviewed: Yes I reviewed the patient's radiology image and Yes I have reviewed radiologist's interpretation Preliminary Findings: No Fracture Seen Accession No. 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 Views: 2 or 3 views. COMPARISON: CT ABDOMEN PELVIS WO/W CON 04/05/2020 10:31 AM FINDINGS: Bones/joints: Normal. No acute fracture. Normal alignment. Soft tissues: Unremarkable. IMPRESSION: No acute findings. #2: Image(s): Other (coccyx) Image Reviewed: Yes I reviewed the patient's radiology image and Yes I have reviewed radiologist's interpretation Preliminary Findings: No Fracture Seen Accession No. 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 COMPARISON: CR XR LUMBAR SPINE 2-3V 05/23/2024 8:21 AM FINDINGS: Bones/joints: Normal. No acute fracture. Soft tissues: Normal. IMPRESSION: No acute findings.
[2024-05-23 09:37] VITALS: BP 155/100; PULSE 70; RESP 20; TEMP 36.8
== END 2024-05-23 09:38 | disposition home or self-care (01) ==
PROVIDERS: Emergency Provider Nurse Practitioner Family; PCP Family Medicine
DX: M54.50 Low back pain, unspecified (principal); M53.3 Sacrococcygeal disorders, not elsewhere classified; W18.30XA Fall on same level, unspecified, initial encounter; Y93.9 Activity, unspecified; Y92.9 Unspecified place or not applicable
CPT/HCPCS: 72100; 72220; 99212; G0381

== ENCOUNTER 2025-01-29 15:57 | Emergency (ER) | payer BC, SELFPAY ==
[2025-01-29 16:10] VITALS: BP 153/102; PULSE 59; RESP 16; TEMP 36.9; O2SAT 100; BMI 36.6
--- OUTSIDE RECORDS SUMMARY | 2025-01-29 16:10 | XMS_ITS | Clinical Summary ---
Author Organization [facility] Address [address] [place] [id number] Care Team Providers Care Quirk Sander Name Role Phone Roberto Noyola MD Primary Care Provider + Allergies No known active allergies Medications atorvastatin (LIPITOR) 10 MG tabletIndication s:Type 2 diabetes mellitus with hyperglycemia, with long-term current use of insulin,Hypercho lesterolemia Take 1 tablet by mouth Daily. 90 tablet 3 5 Active doxycycline (VIBRAMYCIN) 100 MG capsuleIndicatio ns:Acute bronchitis, unspecified organism Take 1 capsule by mouth 2 (Two) Times a Day. 14 capsule 5 Active gabapentin (NEURONTIN) 600 MG tabletIndication s:Type 2 diabetes mellitus with diabetic polyneuropathy, with long-term current use of insulin Take 1 tablet by mouth 3 (Three) Times a Day. 90 tablet 3 5 Active metFORMIN (GLUCOPHAGE) 850 MG tabletIndication s:Type 2 diabetes mellitus with hyperglycemia, with long-term current use of insulin Take 1 tablet by mouth Daily With Breakfast. 30 tablet 3 5 Active Insulin NPH Isophane & Regular (HumuLIN 70/30 KwikPen) (70-30) 100 UNIT/ML suspension pen-injectorIndi cations:Type 2 diabetes mellitus with hyperglycemia, with long-term current use of insulin Take 40 units in the morning and 10 units in the eveing 15 mL 3 5 Active bisoprolol (ZEBeta) 10 MG tabletIndication s:Essential hypertension Take 1 tablet by mouth Daily. 30 tablet 3 5 Active dapagliflozin Propanediol 10 MG tabletIndication s:Type 2 diabetes mellitus with hyperglycemia, with long-term current use of insulin Take 10 mg by mouth Daily. 30 tablet 5 Active Insulin Pen Needle (B-D UF III MINI PEN NEEDLES) 31G X 5 MM miscIndications: Type 2 diabetes mellitus with hyperglycemia, with long-term current use of insulin Inject twice daily 100 each 5 Active lisinopril (PRINIVIL,ZESTRI L) 40 MG tabletIndication s:Essential hypertension Take 1 tablet by mouth Daily. 30 tablet 5 Active Semaglutide (Rybelsus) 7 MG tabletIndication s:Type 2 diabetes mellitus with hyperglycemia, with long-term current use of insulin Take 7 mg by mouth Daily. 30 tablet 5 Active sildenafil (VIAGRA) 100 MG tablet Take 1 tablet by mouth Daily As Needed for Erectile Dysfunction. 6 tablet 5 Active Insulin Pen Needle (B-D UF III MINI PEN NEEDLES) 31G X 5 MM miscIndications: Type 2 diabetes mellitus with hyperglycemia, with long-term current use of insulin Inject twice daily 100 each 5 01/01/20 25 Discontinu ed(Reorder ) bisoprolol (ZEBeta) 10 MG tabletIndication s:Essential hypertension Take 1 tablet by mouth Daily. 30 tablet 5 01/01/20 25 Discontinu ed(Reorder ) dapagliflozin Propanediol 10 MG tabletIndication s:Type 2 diabetes mellitus with hyperglycemia, with long-term current use of insulin Take 10 mg by mouth Daily. 30 tablet 5 01/01/20 25 Discontinu ed(Reorder ) gabapentin (NEURONTIN) 600 MG tabletIndication s:Type 2 diabetes mellitus with diabetic polyneuropathy, with long-term current use of insulin Take 1 tablet by mouth 3 (Three) Times a Day. 90 tablet 5 01/01/20 25 Discontinu ed(Reorder ) Insulin NPH Isophane & Regular (HumuLIN 70/30 KwikPen) (70-30) 100 UNIT/ML suspension pen-injectorIndi cations:Type 2 diabetes mellitus with hyperglycemia, with long-term current use of insulin Take 40 units in the morning and 10 units in the eveing 15 mL 3 5 01/01/20 25 Discontinu ed(Reorder ) lisinopril (PRINIVIL,ZESTRI L) 40 MG tabletIndication s:Essential hypertension Take 1 tablet by mouth Daily. 30 tablet 3 5 01/01/20 25 Discontinu ed(Reorder ) metFORMIN (GLUCOPHAGE) 850 MG tabletIndication s:Type 2 diabetes mellitus with hyperglycemia, with long-term current use of insulin Take 1 tablet by mouth Daily With Breakfast. 30 tablet 3 5 01/01/20 25 Discontinu ed(Reorder ) Semaglutide (Rybelsus) 7 MG tabletIndication s:Type 2 diabetes mellitus with hyperglycemia, with long-term current use of insulin Take 7 mg by mouth Daily. 30 tablet 3 5 01/01/20 25 Discontinu ed(Reorder ) sildenafil (VIAGRA) 100 MG tablet Take 1 tablet by mouth Daily As Needed for Erectile Dysfunction. 6 tablet 3 5 01/01/20 25 Discontinu ed(Reorder ) Active Problems Problem Noted Date Diagnosed Date Type 2 diabetes mellitus wit h stage 3a chronic kidney disease, with long-term current use of insulin 09/23/2024 Microalbuminuria 05/23/2022 Assessment & Plan (05/23/2022 1:00 PM EST): Discussed with patient the prognosis of microalbuminuria. Increase lisinopril to 20 mg. Repeat microalbumin in 3 months Type 2 diabetes mellitus wit h hyperglycemia, with long-term current use of insulin 05/23/2022 Assessment & Plan (09/03/2022 1:44 PM EDT): Diabetes is improving with treatment. Discussed foot care. Medication changes per orders. Diabetes will be reassessed in 3 months. Increase Rybelsus to 14 mg daily Add Farxiga 5 mg Overall control is improving but not at goal Assessment & Plan (06/27/2022 3:14 PM EST): Diabetes is not controlled. Increase Rybelsus to 7 mg daily Class 2 severe obesity due t o excess calories with serious comorbidity and body mass index (BMI) of 37.0 to 37.9 in adult 02/15/2022 Assessment & Plan (05/23/2022 12:59 PM EST): Patient's (Body mass index is 37.13 kg/m .) indicates that they are morbidly obese (BMI > 40 or > 35 with obesity - related health condition) with health conditions that include hypertension, diabetes mellitus and dyslipidemias . Weight is unchanged. BMI is is above average; BMI management plan is completed. We discussed low calorie, low carb based diet program, portion control, increasing exercise and pharmacologic options including Rybelsus. Type 2 diabetes mellitus wit h diabetic polyneuropathy, with long-term current use of insulin 02/15/2022 Assessment & Plan (05/23/2022 1:03 PM EST): Diabetes is unchanged. A1c not at goal Medication changes per orders. Diabetes will be reassessed in 3 months. Add Rybelsus 3 mg increasing to 7 mg in a month. Patient will try to come up with a strategy to remember to take his second dose of insulin. Long-term goal will be to transition to a basal insulin plus semaglutide and either oral or injectable form. Continue metformin. Patient had side effect with SGLT2 in the past. Once EZEKIEL inhibitor therapy is maximized we will make another attempt at SGLT2 treatment. Patient will also continue gabapentin Essential hypertension 02/15/2022 Assessment & Plan (09/03/2022 1:44 PM EDT): Hypertension is improving with treatment. Continue current treatment regimen. Blood pressure will be reassessed in 3 months. Assessment & Plan (05/23/2022 12:59 PM EST): Hypertension is Not at goal. Dietary sodium restriction. Medication changes per orders. Blood pressure will be reassessed in 3 months. Increase lisinopril to 20 mg Hypercholesterolemia 02/15/2022 Assessment & Plan (05/23/2022 12:59 PM EST): Lipid abnormalities are Requires monitoring. Pharmacotherapy as ordered. Lipids will be reassessed in 3 months. May adjust statin pending lab results Encounters Date Type Department Care Team Description 12/31/2024 Refill [facility] [address] [place] [address] Roberto Noyola MD Type 2 diabetes mellitus with diabetic polyneuropathy, with long-term current use of insulin; Type 2 diabetes mellitus with hyperglycemia, with long-term current use of insulin; Essential hypertension; Hypercholesterolemia; Acute bronchitis, unspecified organism; Type 2 diabetes mellitus with hyperglycemia, with long-term current use of insulin 11/19/2024 3:45 PM EDT Office Visit [facility] [address] [place] [address] Roberto Noyola MD Acute bronchitis, unspecified organism (Primary Dx) 11/19/2024 Travel 11/16/2024 Refill [facility] [address] [place] [address] Roberto Noyola MD from Last 3 Months Immunizations Immunization Administration Dates Next Due Tdap 10/30/2017 Family History Medical History Relation Name Comments Diabetes Brother Hypertension Father Diabetes Mother Relation Name Status Comments Brother Alive Father Alive Mother Alive Social History Tobacco Use Types Packs/Day Years Used Date Smoking Tobacco: Never Smokeless Tobacco: Never Tobacco Cessation:Counseling Given: Not Answered Alcohol Use Standard Drinks/Week Comments Never 0 (1 standard drink = 0.6 oz pur e alcohol) PHQ-2 Answer Date Recorded Retired PHQ-9: Brief Depression Severity Measure Score 0 09/03/2022 PHQ-2 Answer Date Recorded Patient Health Questionnaire-2 Score 0 09/23/2024 Sex and Gender Information Value Date Recorded Sex Assigned at Not on file Legal Sex Male 11:53 AM EDT Gender Identity Not on file Sexual Orientation Not on file Last Filed Vital Signs Vital Sign Reading Time Taken Comments Blood Pressure 140/80 11/19/2024 3:59 PM EDT Pulse 65 11/19/2024 3:59 PM EDT Temperature 36.2 C (97.1 F) 11/19/2024 3:59 PM EDT Respiratory Rate 20 11/19/2024 3:59 PM EDT Oxygen Saturation 99% 11/19/2024 3:59 PM EDT Inhaled Oxygen Concentration - - Weight 122 kg (268 lb 12.8 oz) 11/19/2024 3:59 P M EDT Height 182.9 cm (6') 11/19/2024 3:59 PM EDT Body Mass Index 36.46 11/19/2024 3:59 PM EDT Plan of Treatment Health Maintenance Due Date Last Done Comments DIABETIC EYE EXAM 1989 Hepatitis B (1 of 3 - 19+ 3- dose series) 1998 Pneumococcal Vaccine 0-49 (1 of 2 - PCV) 1998 ANNUAL PHYSICAL 09/21/2021 HEPATITIS C SCREENING 09/21/2021 COLOGUARD 01/23/2024 COLON CANCER SCREENING 5 YEA R SIGMOIDOSCOPY 01/23/2024 COLONOSCOPY 01/23/2024 COLORECTAL CANCER SCREENING 01/23/2024 CT COLONOGRAPHY 01/23/2024 FECAL OCCULT BLOOD TEST 01/23/2024 FIT Testing (1 year) 01/23/2024 COVID-19 Vaccine (1 - 2023-2 5 season) 2024 DIABETIC FOOT EXAM 12/17/2024 12/18/2023, 0 12/18/2023, 12/18/2023, Additional history exists INFLUENZA VACCINE 03/23/2025 HEMOGLOBIN A1C 03/25/2025 09/23/2024, 03/23, 12/18/2023, Additional history exists LIPID PANEL 09/23/2025 09/23/2024, 11/22, 09/03/2022, Additional history exists URINE MICROALBUMIN-CREATININ E RATIO (uACR) 09/23/2025 09/23/2024 TDAP/TD VACCINES (2 - Td or Tdap) 10/31/2027 018 Procedures Procedure Name Priority Date/Time Associated Diagnosis Comments HEMOGLOBIN A1C Routine 09/23/2024 4:32 PM EDT Type 2 diabetes mellitus with hyperglycemia, with long-term current use of insulin LIPID PANEL Routine 09/23/2024 4:32 PM EDT Hypercholesterolemi a POC ALBUMIN/CREATININE RATIO Routine 09/23/2024 4:16 PM EDT Type 2 diabetes mellitus with hyperglycemia, with long-term current use of insulin from Last 3 Months or Most Recently Relevant to Health Maintenance Results * (ABNORMAL) Hemoglobin A1c (09/23/2024 4:32 PM EDT) Pathologist [facility] Hemoglobin A1C 7.9(H) 4.8 - 5.6 % [facility] Comment: Prediabetes: 5.7 - 6.4 Diabetes: >6.4 Glycemic control for adults with diabetes: <7.0 Blood 09/23/2024 4:32 PM EDT 09/23/2024 Narrative [facility] (AMBULATORY) - 09/24/2024 5:08 AM EDT Performed at: - [address] [id number] Senior Hardware Design Engineer: Randal Chun PhD, Phone: [phone] Patient Fasting: Y Roebrto Noyola MD LAB BLOOD ORDERABLES Fin al Result [facility] (AMBULATORY) [address] [place] [address], [facility] [address] [place] [address], * (ABNORMAL) Lipid Panel (09/23/2024 4:32 PM EDT) Total Cholesterol 204(H) 100 - 199 mg/dL [facility] Triglycerides 837(H) 0 - 149 mg/dL [facility] HDL Cholesterol 24(L) >39 mg/dL [facility] VLDL Cholesterol Toy Comment(A) 5 - 40 mg/dL [facility] Comment: The calculation for the VLDL cholesterol is not valid when triglyceride level is >800 mg/dL. LDL Chol Calc (NIH) Comment(A) 0 - 99 mg/dL [facility] Comment: Triglyceride result indicated is too high for an accurate LDL cholesterol estimation. LDL Calc Comment Comment [facility] Comment: In the absence of the LDL-c value, if the Total Cholesterol (TC) is >260 mg/dL for those <16 years old or >290 for those >/=16 years old, consider evaluating for Familial Hypercholesterolemia(FH) if clinically indicated. If the TC is below these limits, the probability of FH cannot be determined. Blood 09/23/2024 4:32 PM EDT 09/23/2024 Narrative [facility] (AMBULATORY) - 09/24/2024 5:08 AM EDT Performed at: - [facility] [address] [place] [id number] Senior Hardware Design Engineer: Randal Chun PhD, Phone: [phone] Patient Fasting: Y Roberto Noyola MD LAB BLOOD ORDERABLES Fin al Result [facility] (AMBULATORY) [address] [place] [address], [facility] [address] [place] [address], * (ABNORMAL) POC Albumin/Creatinine Ratio Urine (09/23/2024 4:16 PM EDT) POC ALBUMIN, URINE 150 mg/L POC CREATININE, URINE 100 mg/dL POC Urine Albumin Creatinine Ratio >300 mg/g <30 Comment:high anbnormal Lot Number [id number] Expiration Date 07/23/2025 Urine 09/23/2024 4:16 PM EDT Roberto Noyola MD POINT OF CARE TEST ORDER SHADE Final Result from Last 3 Months or Most Recently Relevant to Health Maintenance Insurance [facility] [facility] P[facility] [employer] Care Teams Quirk Sander Relationship Specialty Start Date End Date Roberto Noyola MD [facility] [address] [address] PCP - General Family Medicine 02/14/22
--- OUTSIDE RECORDS SUMMARY | 2025-01-29 16:10 | XMS_ITS | Clinical Summary ---
Author Organization [facility] Address [address] [place] [address] Care Team Providers Care Health Sciences Manager Name Role Phone Laurence Erazo APRN Primary Care Provider [phone] Family History Medical History Relation Name Comments Stroke Other 1 Diabetes Other 2 Hypertension Other 3 Relation Name Status Comments Other 1 Other 2 Other 3 Social History Tobacco Use Types Packs/Day Years Used Date Smoking Tobacco: Never Alcohol Use Standard Drinks/Week Comments No 0 (1 standard drink = 0.6 oz pur e alcohol) Sex and Gender Information Value Date Recorded Sex Assigned at Not on file Legal Sex Male 8:45 PM EDT Gender Identity Not on file Sexual Orientation Not on file Last Filed Vital Signs Vital Sign Reading Time Taken Comments Blood Pressure 120/96 07/01/2017 9:38 AM EST Pulse - - Temperature - - Respiratory Rate - - Oxygen Saturation - - Inhaled Oxygen Concentration - - Weight 125 kg (274 lb 14.3 oz) 07/01/2017 9:38 A M EST Height 182.9 cm (6') 07/01/2017 9:38 AM EST Body Mass Index 37.28 07/01/2017 9:38 AM EST Plan of Treatment Health Maintenance Due Date Last Done Comments [facility]-Depression Screening 1979 [facility]-Infant/Child/Adol SDOH Screenings 1979 [facility]- SDOH Screenings 1997 [facility]-Adult SDOH Screenings 1997 [facility]-DTaP,Tdap,and Td Vaccine s (1 - Tdap) 1998 [facility]-Hepatitis B Vaccines (1 of 3 - 19+ 3-dose series) 1998 CT Colonography 01/23/2024 Colonoscopy 01/23/2024 FIT-DNA 01/23/2024 FIT 01/23/2024 FOBT 01/23/2024 Sigmoidoscopy 01/23/2024 [facility]-Colorectal Cancer Screening 01/23/2024 [id number] Vaccine (1 20 24-25 season) 2024 [facility]-Influenza Vaccine (#1) 2025 [facility]-Zoster Vaccines (1 of 2) 2029 HPV Vaccines Aged Out No longer eligi ble based on patient's age to complete this topic [facility]-HIB Vaccines Aged Out No longer e ligible based on patient's age to complete this topic [facility]-Hepatitis A Vaccines Aged Out No longer eligible based on patient's age to complete this topic [facility]-IPV Vaccines Aged Out No longer e ligible based on patient's age to complete this topic [facility]-Pneumococcal Vaccine: Pediatrics (0 to 5 Years) and At-Risk Patients (6 to 49 Years) Aged Out No long er eligible based on patient's age to complete this topic [facility]-Rotavirus Vaccines Aged Out No lo nger eligible based on patient's age to complete this topic Insurance [employer] Care Teams Health Sciences Manager Relationship Specialty Start Date End Date Laurence Erazo APRN [address] [facility] [place] [address] PCP - General 11/03/20
--- OUTSIDE RECORDS SUMMARY | 2025-01-29 16:10 | XMS_ITS | Encounter Summary ---
Author Organization [facility] Address [address] [place] [address] Care Team Providers Care Instrument Room Technician Name Role Phone Roberto Noyola MD Primary Care Provider + Encounter Details Date Type Department Care Team (Late st Contact Info) Description 09/26/2024 Results Follow-Up [facility] [address] [facility] [address] Roberto Noyola MD [address] [place] [address] Social History Tobacco Use Types Packs/Day Years Used Date Smoking Tobacco: Never Smokeless Tobacco: Never Alcohol Use Standard Drinks/Week Comments Never 0 [...] on file Sexual Orientation Not on file documented as of this encounter Plan of Treatment Not on file documented as of this encounter Visit Diagnoses Not on filedocumented in this encounter Care Teams Instrument Room Technician Relationship Specialty Start Date End Date Roberto Noyola MD [address] [place] [address] PCP - General Family Medicine 02/14/22 documented as of this encounter
--- OUTSIDE RECORDS SUMMARY | 2025-01-29 16:10 | XMS_ITS | Encounter Summary ---
Author Organization [facility] Address [address] [place] [address] Care Team Providers Care Biophysics Teacher Name Role Phone Roberto Noyola MD Primary Care Provider + Reason for Visit * Reason Onset Date Comments Med Refill 12/31/2024 Encounter Details Date Type Department Care Team (Late st Contact Info) Description 12/31/2024 Refill [facility] [address] [place] [address] Roberto Noyola MD [address] [place] [address] Type 2 diabetes mellitus with diabetic polyneuropathy, with long-term current use of insulin; Type 2 diabetes mellitus with hyperglycemia, with long-term current use of insulin; Essential hypertension; Hypercholesterolemia; Acute bronchitis, unspecified organism; Type 2 diabetes mellitus with hyperglycemia, with long-term current use of insulin Social History Tobacco Use Types Packs/Day Years [...] on file documented as of this encounter Miscellaneous Notes * Telephone Encounter - Rudy Holbrook RegSched Rep - 12/31/2024 12:01 PM EDT Caller: Fina Brian Relationship: Self Best call back number: [phone] Requested Prescriptions: Requested Prescriptions Pending Prescriptions Disp Refills gabapentin (NEURONTIN) 600 MG tablet 90 tablet 3 Sig: Take 1 tablet by mouth 3 (Three) Times a Day. metFORMIN (GLUCOPHAGE) 850 MG tablet 30 tablet 3 Sig: Take 1 tablet by mouth Daily With Breakfast. Insulin NPH Isophane & Regular (HumuLIN 70/30 KwikPen) (70-30) 100 UNIT/ML suspension pen-injector 15 mL 3 Sig: Take 40 units in the morning and 10 units in the eveing bisoprolol (ZEBeta) 10 MG tablet 30 tablet 3 Sig: Take 1 tablet by mouth Daily. dapagliflozin Propanediol 10 MG tablet 30 tablet 3 Sig: Take 10 mg by mouth Daily. doxycycline (VIBRAMYCIN) 100 MG capsule 14 capsule 0 Sig: Take 1 capsule by mouth 2 (Two) Times a Day. Insulin Pen Needle (B-D UF III MINI PEN NEEDLES) 31G X 5 MM misc 100 each 10 Sig: Inject twice daily lisinopril (PRINIVIL,ZESTRIL) 40 MG tablet 30 tablet 3 Sig: Take 1 tablet by mouth Daily. Semaglutide (Rybelsus) 7 MG tablet 30 tablet 3 Sig: Take 7 mg by mouth Daily. sildenafil (VIAGRA) 100 MG tablet 6 tablet 3 Sig: Take 1 tablet by mouth Daily As Needed for Erectile Dysfunction. Pharmacy where request should be sent: [facility] - [place], [place] - [address] [phone] [facility] [phone] FX Last office visit with prescribing clinician: 11/19/2024 Last telemedicine visit with prescribing clinician: Visit date not found Next office visit with prescribing clinician: Visit date not found Additional details provided by patient: Does the patient have less than a 3 day supply: [x] Yes [] No Would you like a call back once the refill request has been completed: [] Yes [x] No If the office needs to give you a call back, can they leave a voicemail: [] Yes [x] No Betsy Valentin Rep 12/31/24 12:03 EDT documented in this encounter Plan of Treatment Not on file documented as of this encounter Visit Diagnoses Diagnosis Type 2 diabetes mellitus with diabetic polyneuropathy, with long-term current use of insulin Type 2 diabetes mellitus with hyperglycemia, with long-term current use of insulin Essential hypertension Unspecified essential hypertension Hypercholesterolemia Pure hypercholesterolemia Acute bronchitis, unspecified organism documented in this encounter Care Teams Biophysics Teacher Relationship Specialty Start Date End Date Roberto Noyola MD [address] [facility] [place] [address] PCP - General Family Medicine 02/14/22 documented as of this encounter
--- OUTSIDE RECORDS SUMMARY | 2025-01-29 16:10 | XMS_ITS | Encounter Summary ---
Author Organization [facility] Address [address] [place] [address] Care Team Providers Care Education Counselor Name Role Phone Roberto Noyola MD Primary Care Provider + Encounter Details Date Type Department Care Team (Late st Contact Info) Description 05/31/2024 Telephone [facility] [address] [place] [address] Esau Franklin MD [address] [facility] [address] [place] [address] Social History Tobacco Use Types Packs/Day Years Used Date Smoking Tobacco: Never Smokeless Tobacco: Never Alcohol Use Standard Drinks/Week Comments Never 0 (1 standard drink = 0.6 oz pur e alcohol) PHQ-2 Answer Date Recorded Retired PHQ-9: Brief Depression Severity Measure Score 0 09/03/2022 PHQ-2 Answer Date Recorded Retired PHQ-9: Brief Depression Severity Measure Score 0 12/10/2023 Sex and Gender Information Value Date Recorded Sex Assigned at Not on file Legal Sex Male 11:53 AM EDT Gender Identity Not on file Sexual Orientation Not on file documented as of this encounter Plan of Treatment Not on file documented as of this encounter Visit Diagnoses Not on filedocumented in this encounter Care Teams Education Counselor Relationship Specialty Start Date End Date Roberto Noyola MD [address] [place] [address] PCP - General Family Medicine 02/14/22 documented as of this encounter
--- NOTE | 2025-01-29 16:16 | XR_ITS ---
PROCEDURE INFORMATION: Exam: XR Left Knee Exam date and time: 01/29/2025 4:27 PM Age: 45 years old Clinical indication: Pain; Knee; Left TECHNIQUE: Imaging protocol: Radiologic exam of the left knee. Views: 3 views. COMPARISON: US ARTERIAL LOWER EXT REST 09/10/2022 3:54 PM FINDINGS: Bones/joints: Normal anatomic alignment. The bone density is normal for this patient's age. Mild osteoarthritis of the patellofemoral joint. There is no evidence of a joint effusion. Small superior patellar enthesophyte. No acutely displaced fractures. No joint dislocation. No aggressive osseous lesions. Soft tissues: No acute soft tissue findings. IMPRESSION: 1. No acute skeletal pathology. 2. Mild osteoarthritis.
--- NOTE | 2025-01-29 16:24 | ED_ITS ---
<Statement entered by Amy Hoskins DO - 01/31/25 13:42> I was consulted by the JL, and we discussed the complexity of problems being addressed. I approve the treatment and management plan for this patient's care in the emergency department, thus performing a substantial portion of the medical decision making. Amy Hoskins DO Discharge Plan Disposition Patient Disposition: Home, Self-Care Condition: Good Prescriptions Prescriptions: New oxycodone 5 mg tablet 5 mg PO BID Qty: 6 0RF No Action atorvastatin 10 mg tablet 10 mg PO DAILY metformin 850 mg tablet 850 mg PO DAILY gabapentin 300 mg capsule 600 mg PO TID Novolin 70-30 FlexPen U-100 100 unit/mL (70-30) insulin pen See Rx Instructions .ROUTE .COMPLEX Rx Instructions: SEE INSTRUCTIONS lisinopril 20 mg tablet 20 mg PO DAILY Rybelsus 7 mg tablet 7 mg PO DAILY bisoprolol fumarate 10 MG tablet 10 mg PO DAILY cyclobenzaprine 10 mg Tablet 10 mg PO BID PRN (Reason: Muscle Spasm) Qty: 20 0RF ibuprofen [IBU] 800 mg tablet 800 mg PO Q8HP PRN (Reason: Moderate Pain) Qty: 30 0RF Referrals Follow up/Referrals: Desmond Mary DO [Staff Physician, Orthopedics] - See instructions Roberto Noyola MD [Primary Care Provider, Medical] - See instructions Activity Restrictions/Add. Instructions Additional Instructions/Restrictions: Elevate, ice, Tylenol and ibuprofen for pain. Call Dr. Mary on Friday. Clinical Impressions Clinical Impression: Effusion of knee joint, left Instructions Patient Instructions: DI for Knee Effusion Print Language Print Language: Thai Discharge ED Provider: Amy Hoskins General Adult HPI <Leatha Sunshine (ED), CONSUMER SAFETY INSPECTOR - Last Filed: 01/29/25 20:44> General Chief complaint: PAIN Stated complaint: left knee pain Time Seen by Provider: 01/29/25 16:06 Mode of Arrival: Ambulatory Source of Information: Patient and Spouse Description of Symptoms (Recalled from ER Triage Doc. by RN): patient present to the emergency room for severe left knee pain. patient stated there have been no recent falls, injuries, or noted pops . Kameronnet said he was able to work last night just fine but woke up today in severe pain and felt like he was going to vomit from the pain . patient cannot stand to bear weight on it, he is currently using a wheelchair. patient did state he took 800mg of ibuprofen. History of Present Illness HPI narrative: 45-year-old male presents to the ED today for complaint of severe left knee pain. No recent injury. He says that on Friday he started going to the chiropractor for his right knee and they did an x-ray on his hips and said that his hips were out of line. But his left knee started hurting over the last 2 days and he has been unable to straighten it and had severe pain. states that he has been limping for 2 days. He went back to work for the first day last night and has been having more pain. Patient denies redness or swelling of the left knee. He said he did twist it yesterday but it was already hurting. He did have a history of gout but that has been years ago. He Related Data Home Medications ?Medication ?Instructions ?Recorded ?Confirmed bisoprolol fumarate 10 mg tablet 10 mg PO DAILY htn 05/23/24 insulin NPH-regular 70-30 U-100 See Rx Instructions .R oute 12/04/21 10/15/22 insulin 100 unit/mL subcutaneous .COMPLEX Diabetes pen (Novolin 70-30 FlexPen U-100 Insulin) atorvastatin 10 mg tablet 10 mg PO DAILY Cholesterol 0 01/01/22 05/23/24 metformin 850 mg tablet 850 mg PO DAILY Diabetes 06/1305/23/24 gabapentin 300 mg capsule 600 mg PO TID Pain 09/03/22 05/23/24 lisinopril 20 mg tablet 20 mg PO DAILY BLOOD PRESSUR E 09/03/22 05/23/24 semaglutide 7 mg tablet (Rybelsus) 7 mg PO DAILY Diabe tony 09/03/22 10/15/22 Previous Rx's ?Medication ?Instructions ?Recorded cyclobenzaprine 10 mg tablet 10 mg PO BID PRN Muscle S pasm #20 05/23/24 tabs ibuprofen 800 mg tablet (IBU) 800 mg PO Q8HP PRN Moder ate Pain 05/23/24 #30 tabs oxycodone 5 mg tablet 5 mg PO BID #6 tabs 01/29/25 Allergies Allergy/AdvReac Type Severity Reaction Status Date / Time CHICKEN MEAT Allergy Unknown Uncoded 09/03/22 09:13 SHRIMP Allergy Unknown Uncoded 09/03/22 09:13 PFSH <Leatha Sunshine (ED), CONSUMER SAFETY INSPECTOR - Last Filed: 01/29/25 20:44> [facility] Disclaimer: The information contained in this section may have been updated after the patient was seen, as this information can be updated by other users. Medical History Angina, class I Foot pain, right HTN (hypertension) Social History Smoking Status: Never smoker alcohol intake: current alcohol intake frequency: holidays/special occasions only substance use type: denies use current occupational status: employed Travel in the last 8 weeks?: None household members: family housing: house caffeine: Yes Other Medical History Have you received the Flu Vaccine for this season: No Have you received the Pneumonia Vaccine: No <Leatha Sunshine (ED), CONSUMER SAFETY INSPECTOR - Last Filed: 01/29/25 20:44> ROS Obtained: Yes Systems reviewed as appropriate & no additional complaints except as documented Constitutional Constitutional: Reports as per HPI Physical Exam <Leatha Sunshine (ED), CONSUMER SAFETY INSPECTOR - Last Filed: 01/29/25 20:44> General General appearance: alert and in distress Head Head exam: normocephalic Eye Eye exam: Present PERRL and EOMI ENT ENT exam: Present mucous membranes moist Neck Neck exam: Present full ROM and trachea midline Respiratory Respiratory exam: Present normal lung sounds bilaterally Cardiovascular Cardiovascular exam: Present regular rate, normal rhythm, normal heart sounds, +S1 and +S2 Extremities Exam Extremities exam: Present tenderness Neurological Exam Neurological exam: Present alert and oriented X3 Skin Skin exam: Present warm, dry and intact Medical Decision Making <Leatha Sunshine (ED), CONSUMER SAFETY INSPECTOR - Last Filed: 01/29/25 20:44> Medical Records Screening: Per USPSTF and CDC recommendations, given the prevalence of disease in our region, it is our hospital?s policy to screen for HIV and viral Hepatitis for all patients aged 18 and over and those with ongoing risk factors. Deuce Inquiry Pt receiving controlled substance: No Vital Signs: 01/29/25 16:10 01/29/25 16:30 01/29/25 17:00 Temperature 98.4 F Temperature Source Oral Pulse Rate Pulse Rate [Left Brachial] 59 L Respiratory Rate 16 Blood Pressure 189/120 H 192/120 H Blood Pressure [Right Arm] 153/102 H Blood Pressure Mean 143 138 Blood Pressure Mean [Right Arm] 119 Blood Pressure Source [Right Arm] Automatic Cuff Blood Pressure Position Blood Pressure Position [Right Arm] Sitting 02 Sat by Pulse Oximetry 100 Oxygen Delivery Method Room Air 01/29/25 17:30 01/29/25 18:00 01/29/25 19:30 Temperature 98.1 F Temperature Source Oral Pulse Rate 60 Pulse Rate [Left Brachial] Respiratory Rate 16 Blood Pressure 188/125 H 172/105 H 180/115 H Blood Pressure [Right Arm] Blood Pressure Mean 146 127 Blood Pressure Mean [Right Arm] Blood Pressure Source [Right Arm] Blood Pressure Position Sitting Blood Pressure Position [Right Arm] 02 Sat by Pulse Oximetry Oxygen Delivery Method Room Air Lab Data Lab Results 01/29/25 16:25: WBC 14.3 H, RBC 4.69, Hgb 13.5 L, Hct 39.4 L, MCV 84.0, MCH 28.8, MCHC 34.3, RDW 12.5, Plt Count 243, MPV 10.3, Neut % (Auto) 67.0, Lymph % (Auto) 23.1, Nelson % (Auto) 7.1, Eos % (Auto) 1.3, Baso % (Auto) 0.8, Neut # (Auto) 9.6 H, Lymph # (Auto) 3.3, Nelson # (Auto) 1.0, Eos # (Auto) 0.2, Baso # (Auto) 0.1, ESR 13, Sodium 135 L, Potassium 4.4, Chloride 104, Carbon Dioxide 21 L, Anion Gap 14.4, BUN 35 H, Creatinine 2.20 H, Estimated Creat Clear 73, E stimated GFR 32 L, Est GFR ( Amer) 39 L, Glucose 189 H, Uric Acid 9.5 H, Calcium 9.6, Total Bilirubin 0.2, AST 31, ALT 27, Alkaline Phosphatase 91, C- Reactive Protein 3.5, Total Protein 7.8, Albumin 4.5, Globulin 3.3 H, Albumin/Globulin Ratio 1.4 01/29/25 16:25 01/29/25 16:25 Orders (Tests/Meds): ED MEDICATIONS Discontinued Medications Generic Name Dose Route Start Last Admin Trade Name Kathy PRN Reason Stop Dose Admin Hydromorphone HCl 0.5 mg 01/29/25 17:10 01/29/25 17:27 Hydromorphone 2mg/Ml Syringe IV 01/29/25 17:11 0.5 mg ONCE ONE Administration Methylprednisolone Sodium Succinate 80 mg 01/29/25 16:17 01/29/25 16:32 Methylprednisolone Sod Succ 125mg Vial IV 01/29/25 16:18 80 mg ONCE ONE Administration Morphine Sulfate 4 mg 01/29/25 16:17 01/29/25 16:33 Morphine 4mg/Ml Syringe IV 01/29/25 16:18 4 mg ONCE ONE Administration Ondansetron HCl 4 mg 01/29/25 16:17 01/29/25 16:33 Ondansetron 4mg/2ml Vial IV 01/29/25 16:18 4 mg ONCE ONE Administration Orphenadrine Citrate 30 mg 01/29/25 16:23 01/29/25 16:32 Orphenadrine Citrate 60mg/2ml Vial IV 01/29/25 16:24 30 mg ONCE ONE Administration ORDERS Category Date Time Status CT knee LT wo con Stat Cat Scan 01/29/25 18:05 Completed Knee XR left 3 views [XR knee LT 3V] Stat Exams 01/29/25 16:16 Completed POCUS Point of Care (ER Only) Stat Exams 01/29/25 16:39 Completed CBC w/Auto Diff [Complete Blood Count Auto Diff] Stat Lab 01/29/25 16:25 Completed CRP [C-Reactive Protein] Stat Lab 01/29/25 16:25 Completed Comprehensive Metabolic Panel Stat Lab 01/29/25 16:25 Completed Erythrocyte Sedimentation Rate Stat Lab 01/29/25 16:25 Completed Uric Acid Stat Lab 01/29/25 16:25 Completed Medical Decision Narrative: patient is a 45-year-old male presenting to the emergency department for evaluation of left knee pain. Patient is hemodynamically stable and nontoxic- appearing upon arrival, afebrile. Differential diagnosis includes left knee pain, gout, meniscal tear among others. Workup will be conducted with hematologic labs, specific imaging. Initial inventions include analgesics. Initial workup reviewed by me [hematologic labs are remarkable for:]. [Imaging informally interpreted by me and remarkable for:] [Formal imaging read remarkable for:] Upon repeat evaluation [patient's pain is improved, appears better perfused, appears the same, appears worse, etc.]. Due to this [additional interventions, patient is appropriate for discharge, patient requires admission, etc.]. <Amy Gato, DO - Last Filed: 01/31/25 19:22> Vital Signs: 01/29/25 16:10 01/29/25 16:30 01/29/25 17:00 Temperature 98.4 F Temperature Source Oral Pulse Rate Pulse Rate [Left Brachial] 59 L Respiratory Rate 16 Blood Pressure 189/120 H 192/120 H Blood Pressure [Right Arm] 153/102 H Blood Pressure Mean 143 138 Blood Pressure Mean [Right Arm] 119 Blood Pressure Source [Right Arm] Automatic Cuff Blood Pressure Position Blood Pressure Position [Right Arm] Sitting 02 Sat by Pulse Oximetry 100 Oxygen Delivery Method Room Air 01/29/25 17:30 01/29/25 18:00 01/29/25 19:30 Temperature 98.1 F Temperature Source Oral Pulse Rate 60 Pulse Rate [Left Brachial] Respiratory Rate 16 Blood Pressure 188/125 H 172/105 H 180/115 H Blood Pressure [Right Arm] Blood Pressure Mean 146 127 Blood Pressure Mean [Right Arm] Blood Pressure Source [Right Arm] Blood Pressure Position Sitting Blood Pressure Position [Right Arm] 02 Sat by Pulse Oximetry Oxygen Delivery Method Room Air Lab Data Lab results reviewed: Yes I reviewed the patient's lab results. Lab Results 01/29/25 16:25: WBC 14.3 H, RBC 4.69, Hgb 13.5 L, Hct 39.4 L, MCV 84.0, MCH 28.8, MCHC 34.3, RDW 12.5, Plt Count 243, MPV 10.3, Neut % (Auto) 67.0, Lymph % (Auto) 23.1, Nelson % (Auto) 7.1, Eos % (Auto) 1.3, Baso % (Auto) 0.8, Neut # (Auto) 9.6 H, Lymph # (Auto) 3.3, Nelson # (Auto) 1.0, Eos # (Auto) 0.2, Baso # (Auto) 0.1, ESR 13, Sodium 135 L, Potassium 4.4, Chloride 104, Carbon Dioxide 21 L, Anion Gap 14.4, BUN 35 H, Creatinine 2.20 H, Estimated Creat Clear 73, E stimated GFR 32 L, Est GFR ( Amer) 39 L, Glucose 189 H, Uric Acid 9.5 H, Calcium 9.6, Total Bilirubin 0.2, AST 31, ALT 27, Alkaline Phosphatase 91, C- Reactive Protein 3.5, Total Protein 7.8, Albumin 4.5, Globulin 3.3 H, Albumin/Globulin Ratio 1.4 Orders (Tests/Meds): ED MEDICATIONS Discontinued Medications Generic Name Dose Route Start Last Admin Trade Name Kathy PRN Reason Stop Dose Admin Hydromorphone HCl 0.5 mg 01/29/25 17:10 01/29/25 17:27 Hydromorphone 2mg/Ml Syringe IV 01/29/25 17:11 0.5 mg ONCE ONE Administration Methylprednisolone Sodium Succinate 80 mg 01/29/25 16:17 01/29/25 16:32 Methylprednisolone Sod Succ 125mg Vial IV 01/29/25 16:18 80 mg ONCE ONE Administration Morphine Sulfate 4 mg 01/29/25 16:17 01/29/25 16:33 Morphine 4mg/Ml Syringe IV 01/29/25 16:18 4 mg ONCE ONE Administration Ondansetron HCl 4 mg 01/29/25 16:17 01/29/25 16:33 Ondansetron 4mg/2ml Vial IV 01/29/25 16:18 4 mg ONCE ONE Administration Orphenadrine Citrate 30 mg 01/29/25 16:23 01/29/25 16:32 Orphenadrine Citrate 60mg/2ml Vial IV 01/29/25 16:24 30 mg ONCE ONE Administration ORDERS Category Date Time Status CT knee LT wo con Stat Cat Scan 01/29/25 18:05 Completed Knee XR left 3 views [XR knee LT 3V] Stat Exams 01/29/25 16:16 Completed POCUS Point of Care (ER Only) Stat Exams 01/29/25 16:39 Completed CBC w/Auto Diff [Complete Blood Count Auto Diff] Stat Lab 01/29/25 16:25 Completed CRP [C-Reactive Protein] Stat Lab 01/29/25 16:25 Completed Comprehensive Metabolic Panel Stat Lab 01/29/25 16:25 Completed Erythrocyte Sedimentation Rate Stat Lab 01/29/25 16:25 Completed Uric Acid Stat Lab 01/29/25 16:25 Completed Medical Decision Narrative: patient is a 45-year-old male presenting to the emergency department for evaluation of left knee pain. Patient is hemodynamically stable and nontoxic- appearing upon arrival, afebrile. Differential diagnosis includes left knee pain, gout, meniscal tear among others. Workup will be conducted with hematologic labs, specific imaging. Initial inventions include analgesics. Patient's labs were reviewed and interpreted by myself: CBC showed no leukocytosis, hemoglobin was stable. ESR was normal, CRP normal. CMP was unremarkable. Uric acid mildly elevated at 9.5. X-rays of the right knee were reviewed and interpreted by myself and showed no acute pathology. CT of the right knee was reviewed and interpreted by myself and showed no acute pathology except for mild suprapatellar effusion. [id number] ultrasound was performed which showed small effusion. On exam, patient had no redness, patient's knee was not swollen. It was not warm to the touch, low concern for septic joint. Concern for gout given no swelling no erythema. Patient was able to range the knee. Patient's labs showed no elevated inflammatory markers to suggest septic knee at this time either. Likely had a small traumatic effusion. At this time, patient was recommended to follow-up with Dr. Mary with the orthopedic team as patient may need an MRI to further evaluate the ligaments and tendons of his knee. Patient had a good pulse in the right lower extremity had no numbness or weakness low concern for vascular injury at this time. Patient was advised to use Tylenol and Motrin at home and patient was otherwise discharged home in stable condition. POCUS: Indication: Knee pain Findings: small effusion Impression: small effusion CPT Code: 65349-24 Critical Care <Leatha Sunshine (CHANELL), CONSUMER SAFETY INSPECTOR - Last Filed: 01/29/25 20:44> Critical Care Time Critical Care Time: No
[2025-01-29 16:30] VITALS: BP 189/120
[2025-01-29] MEDS: ORPHENADRINE CITRATE 60MG/2ML VIAL 30 MG IV (16:32)
[2025-01-29] MEDS: METHYLPREDNISOLONE SOD SUCC 125MG VIAL 80 MG IV (16:32)
[2025-01-29] MEDS: MORPHINE 4MG/ML SYRINGE 4 MG IV (16:33)
[2025-01-29] MEDS: ONDANSETRON 4MG/2ML VIAL 4 MG IV (16:33)
[2025-01-29 16:35] LABS: Hematocrit 39.4 % (42.0-52.0); Hemoglobin 13.5 g/dL (14.1-18.0); Immature Granulocytes % 0.7 %; Mean Corpuscular HGB Conc 34.3 g/dL (31.8-35.4); Mean Corpuscular Hemoglobin 28.8 pg (27.0-31.2); Mean Corpuscular Volume 84.0 fl (80-94); Nucleated Red Blood Cells % 0 %; Platelet Count 243 K/mm3 (142-424); Red Blood Count 4.69 M/mm3 (4.60-6.20); Red Cell Distribution Width-SD 37.9 fL; White Blood Count 14.3 K/mm3 (4.8-10.8)
[2025-01-29 16:42] LABS: Alanine Aminotransferase 27 U/L (12-78); Albumin Level 4.5 g/dl (3.5-5.0); Albumin/Globulin Ratio 1.4 (1.1-1.8); Alkaline Phosphatase 91 U/L (38-126); Anion Gap 14.4 mEq/L (5-15); Aspartate Amino Transferase 31 U/L (17-59); Bilirubin,Total 0.2 mg/dl (0.2-1.3); Blood Urea Nitrogen 35 mg/dl (9-20); Calcium 9.6 mg/dl (8.4-10.2); Carbon Dioxide 21 mmol/L (22.0-30.0); Chloride 104 mmol/L (98-107); Creatinine Clearance Estimated 73 mL/min (50-200); Creatinine,Serum 2.20 mg/dl (0.66-1.25); Estimated Glomerular Filt Rate 32 ml/min (>60); GFR (African American) 39 ML/MIN (>60); Globulin 3.3 g/dL (1.3-3.2); Glucose 189 mg/dl (74-100); Potassium 4.4 mmoL/L (3.5-5.1); Sodium 135 mmol/L (136-145); Total Protein,Serum 7.8 g/dl (6.3-8.2)
[2025-01-29 16:43] LABS: Uric Acid 9.5 mg/dl (3.5-8.5)
[2025-01-29 16:47] LABS: C-Reactive Protein 3.5 mg/L (0-4)
[2025-01-29 17:00] VITALS: BP 192/120
[2025-01-29] MEDS: HYDROMORPHONE 2MG/ML SYRINGE 0.5 MG IV (17:27)
[2025-01-29 17:30] VITALS: BP 188/125
[2025-01-29 18:00] VITALS: BP 172/105
--- NOTE | 2025-01-29 18:05 | CT_ITS ---
PROCEDURE INFORMATION: Exam: CT Left Lower Extremity Without Contrast, Knee Exam date and time: 01/29/2025 6:35 PM Age: 45 years old Clinical indication: Pain; Knee; Left; Additional info: Knee pain TECHNIQUE: Imaging protocol: CT of the left lower extremity without contrast was performed. Exam focused on the knee. Radiation optimization: All CT scans at this facility use at least one of these dose optimization techniques: automated exposure control; mA and/or kV adjustment per patient size (includes targeted exams where dose is matched to clinical indication); or iterative reconstruction. COMPARISON: CR XR KNEE LT 3V 01/29/2025 4:27 PM FINDINGS: Bones/joints: Normal anatomic alignment. The bone density is normal for this patient's age. Mild osteoarthritis of the patellofemoral joint. Small superior patellar enthesophyte. No acutely displaced fractures. No joint dislocation. No aggressive osseous lesions. Small suprapatellar effusion. Soft tissues: There is no significant soft tissue swelling. IMPRESSION: 1. No acute skeletal pathology. 2. Small suprapatellar effusion. 3. Mild osteoarthritis.
[2025-01-29 19:30] VITALS: BP 180/115; PULSE 60; RESP 16; TEMP 36.7; O2SAT 100
== END 2025-01-29 19:31 | disposition home or self-care (01) ==
PROVIDERS: Nurse Practitioner; Emergency Provider Student in an Organized Health Care Education/Training Program; PCP Family Medicine
DX: M25.562 Pain in left knee (principal); M25.462 Effusion, left knee
CPT/HCPCS: 73562; 73700; 80053; 84550; 85025; 85651; 86140; 96374; 96375; 99285; J1171; J2270; J2360; J2405; J2919

== ENCOUNTER 2025-03-15 07:06 | Outpatient (CLI) | payer BC, SELFPAY ==
--- NOTE | 2025-03-15 07:07 | MR_ITS ---
FINAL REPORT TECHNIQUE: Multiplanar and multisequence imaging of the lumbar spine was obtained without contrast. CLINICAL HISTORY: LUMBAR SPINE PAIN.BILATEAL FEET NUMBNESS. RIGHT KNEE PAIN. RIGHT SIDED LOW BACK PAIN FINDINGS: There is normal alignment of the lumbar vertebral bodies. Vertebral body height is preserved. The spinal cord ends at the level of L1. There is normal signal intensity within the substance of the distal spinal cord. No acute bone marrow edema or pathologic marrow replacement. No acute paraspinal abnormality is identified. L1-2: There is no focal disc herniation, central canal stenosis or neuroforaminal narrowing. L2-3: There is no focal disc herniation, central canal stenosis or neuroforaminal narrowing. L3-4: Annular disc bulge with mild left neuroforaminal narrowing. L4-5: Annular disc bulge with degenerative endplate changes and facet osteoarthropathy. There is mild left neuroforaminal narrowing. L5-S1: There is sacralization of the right transverse process. IMPRESSION: Mild degenerative disease as above. Reviewed, Interpreted and Dictated by Bina Almaraz MD Transcribed by Adry Foster Authenticated and [facility]
--- OUTSIDE RECORDS SUMMARY | 2025-03-15 07:08 | XMS_ITS | Clinical Summary ---
Author Organization Healthcare Address [address] [place] [address] Care Team Providers Care Substance Abuse Therapist Name Role Phone Laurence Erazo APRN Primary Care Provider [phone] Family History Medical History Relation Name Comments [...] Date Last Done Comments [facility]-Depression Screening 1979 [facility]-/Child/Adol SDOH Screenings 1979 [facility]- SDOH Screenings 1997 [facility]-Adult SDOH Screenings 1997 [facility]-DTaP,Tdap,and Td Vaccine s (1 - Tdap) 1998 [facility]-Hepatitis B Vaccines (1 of 3 - 19+ 3-dose series) 1998 CT Colonography 01/23/2024 Colonoscopy 01/23/2024 FIT-DNA 01/23/2024 FIT 01/23/2024 FOBT 01/23/2024 Sigmoidoscopy 01/23/2024 [facility]-Colorectal Cancer Screening 01/23/2024 [id number] Vaccine (1 20 24-25 season) 2025 [facility]-Influenza Vaccine (#1) 2025 [facility]-Zoster Vaccines (1 [...] complete this topic Insurance [employer] Care Teams Substance Abuse Therapist Relationship Specialty Start Date End Date Laurence Erzao APRN [phone] [facility] [place] [id number] PCP - General 11/03/20
== END 2025-03-15 23:59 | disposition home or self-care (01) ==
LOC: RAD 07:06
PROVIDERS: PCP Family Medicine; Visit Provider Specialist/Technologist Athletic Trainer
DX: M51.369 Other intervertebral disc degeneration, lumbar region without mention of lumbar back pain or lower extremity pain (principal)
CPT/HCPCS: 72148